=== PATIENT | female | born 1960 | race Caucasian/White ===

== ENCOUNTER 2021-06-22 06:11 | Day surgery (SDC) | payer OTHER ==
[2021-06-14 11:27] VITALS: BMI 37.3
[2021-06-22 06:41] VITALS: TEMP 98.6
[2021-06-22] MEDS ORDERED: PROPOFOL 20 ML ONE ×2 (07:23)
[2021-06-22] MEDS ORDERED: ceFAZolin SODIUM 1 GM VIAL ONE (07:23)
[2021-06-22] MEDS ORDERED: MIDAZOLAM HCL 2 MG/2 ML SINGLE DOSE VIAL ONE (07:23)
[2021-06-22] MEDS ORDERED: LIDOCAINE HCL/PF 2% SDV 5ML VIAL ONE (07:23)
[2021-06-22] MEDS ORDERED: ONDANSETRON 4 MG/2 ML VIAL ONE (07:58)
[2021-06-22] MEDS ORDERED: BUPIVACAINE HCL/PF 0.25% (2.5MG/ML) 10 ML VIAL ONE (08:04)
[2021-06-22] MEDS ORDERED: oxyCODONE HCL 5 MG TABLET PO PRN (08:50)
[2021-06-22] MEDS ORDERED: ACETAMINOPHEN 500 MG TABLET (FP) PO PRN (08:50)
[2021-06-22 09:07] VITALS: BP 100/60; PULSE 69
[2021-06-22] MEDS ORDERED: KETOROLAC TROMETHAMINE 30 MG/1 ML VIAL IM ONE (09:15)
== END 2021-06-22 09:25 | disposition home or self-care (01) ==
LOC: FASU 06:11
PROVIDERS: ATTEND Orthopaedic Surgery
PROC: 0L843ZZ Division of Left Upper Arm Tendon, Percutaneous Approach (ICD-10-PCS; principal; 2021-06-22 08:01)
DX: M77.12 Lateral epicondylitis, left elbow (principal)
CPT/HCPCS: 82962; 94760

== ENCOUNTER 2021-08-20 04:25 | Day surgery (SDC) | payer OTHER ==
[2021-08-15 17:25] VITALS: BMI 37.3
[2021-08-20] MEDS ORDERED: PROPOFOL 20 ML ONE (11:16)
[2021-08-20] MEDS ORDERED: MIDAZOLAM HCL 2 MG/2 ML SINGLE DOSE VIAL ONE (11:16)
[2021-08-20] MEDS ORDERED: KETOROLAC TROMETHAMINE 30 MG/1 ML VIAL ONE (11:26)
[2021-08-20 13:51] VITALS: BP 98/70; PULSE 70; TEMP 98.2
== END 2021-08-20 14:27 | disposition home or self-care (01) ==
LOC: JASU-SURG 04:25
PROVIDERS: ATTEND Urology
PROC: 0TF3XZZ Fragmentation in Right Kidney Pelvis, External Approach (ICD-10-PCS; principal; 2021-08-20 11:30)
DX: N20.0 Calculus of kidney (principal); I10 Essential (primary) hypertension; E11.9 Type 2 diabetes mellitus without complications
CPT/HCPCS: 82962

== ENCOUNTER 2022-05-24 07:11 | Day surgery (SDC) | payer OTHER ==
[2022-05-22 09:31] VITALS: BMI 37.5
[2022-05-24] MEDS ORDERED: BUPIVACAINE HCL/EPINEPHRINE/PF 30 ML VIAL IJ ONE (08:20)
[2022-05-24] MEDS ORDERED: MIDAZOLAM HCL 2 MG/2 ML SINGLE DOSE VIAL ONE (08:27)
[2022-05-24] MEDS ORDERED: LIDOCAINE HCL/PF 2% SDV 5ML VIAL ONE (08:27)
[2022-05-24] MEDS ORDERED: PROPOFOL 20 ML ONE ×2 (08:27→08:48)
[2022-05-24] MEDS ORDERED: DEXAMETHASONE SOD PHOSPHATE 4 MG/1 ML VIAL ONE (08:51)
[2022-05-24] MEDS ORDERED: KETOROLAC TROMETHAMINE 30 MG/1 ML VIAL ONE (08:51)
[2022-05-24] MEDS ORDERED: ONDANSETRON 4 MG/2 ML VIAL ONE (08:51)
[2022-05-24] MEDS ORDERED: ceFAZolin SODIUM 1 GM VIAL ONE ×2 (08:52)
[2022-05-24] MEDS ORDERED: BUPIVACAINE HCL/PF 0.25% (2.5MG/ML) 10 ML VIAL ONE (09:31)
[2022-05-24] MEDS ORDERED: oxyCODONE HCL 5 MG TABLET PO PRN (09:57)
[2022-05-24] MEDS ORDERED: ACETAMINOPHEN 325 MG TABLET (FP) PO PRN (09:57)
[2022-05-24] MEDS ORDERED: ONDANSETRON 4 MG/2 ML VIAL IVPUSH PRN (09:57)
[2022-05-24] MEDS ORDERED: LACTATED RINGERS SOLUTION 1,000 ML IV SCH (10:00)
[2022-05-24] MEDS ORDERED: oxyCODONE HCL 5 MG TABLET ONE (11:00)
[2022-05-24] MEDS ORDERED: ACETAMINOPHEN 325 MG TABLET (FP) ONE (11:01)
[2022-05-24 11:52] VITALS: TEMP 97.8
[2022-05-24 11:57] VITALS: BP 108/62; PULSE 75; RESP 20
== END 2022-05-24 11:45 | disposition home or self-care (01) ==
LOC: FASU 07:11
PROVIDERS: ATTEND Orthopaedic Surgery
PROC: 0SBD4ZZ Excision of Left Knee Joint, Percutaneous Endoscopic Approach (ICD-10-PCS; principal; 2022-05-24 09:06)
DX: S83.242A Other tear of medial meniscus, current injury, left knee, initial encounter (principal); M94.262 Chondromalacia, left knee; M65.9 Synovitis and tenosynovitis, unspecified; X58.XXXA Exposure to other specified factors, initial encounter; Y93.9 Activity, unspecified; Y92.9 Unspecified place or not applicable
CPT/HCPCS: 82962; 94760

== ENCOUNTER 2024-04-15 07:18 | Day surgery (SDC) | payer OTHER ==
[2024-04-14 11:18] VITALS: BMI 31.9
[2024-04-15 12:29] VITALS: RESP 20
[2024-04-15] MEDS: LIDOCAINE 1% P/F 10 MG/ML VIAL INF ONE (15:04)
[2024-04-15] MEDS: BUPIVACAINE HCL/PF 0.5% (5MG/ML) 10 ML VIAL IJ ONE (15:05)
[2024-04-15] MEDS ORDERED: ACETAMINOPHEN 500 MG TABLET (FP) PO PRN (16:53)
[2024-04-15 16:54] VITALS: BP 128/76; PULSE 75; TEMP 97.3
== END 2024-04-15 16:00 | disposition home or self-care (01) ==
LOC: JASU-SURG 07:18
PROVIDERS: ATTEND Pain Medicine Pain Medicine
PROC: 3E0T3BZ Introduction of Anesthetic Agent into Peripheral Nerves and Plexi, Percutaneous Approach (ICD-10-PCS; principal; 2024-04-15 14:00)
DX: M47.812 Spondylosis without myelopathy or radiculopathy, cervical region (principal)
CPT/HCPCS: 76000-TC-FY

== ENCOUNTER 2024-05-20 06:50 | Day surgery (SDC) | payer OTHER ==
[2024-05-17 14:32] VITALS: BMI 32.5
[2024-05-20 11:34] VITALS: PULSE 65
[2024-05-20] MEDS ORDERED: ACETAMINOPHEN 500 MG TABLET (FP) PO PRN (12:10)
[2024-05-20 12:47] VITALS: BP 134/65; RESP 16; TEMP 97.3
== END 2024-05-20 13:20 | disposition home or self-care (01) ==
LOC: JASU-SURG 06:50
PROVIDERS: ATTEND Pain Medicine Pain Medicine
PROC: 3E0T3BZ Introduction of Anesthetic Agent into Peripheral Nerves and Plexi, Percutaneous Approach (ICD-10-PCS; principal; 2024-05-20 13:00)
DX: M47.812 Spondylosis without myelopathy or radiculopathy, cervical region (principal)
CPT/HCPCS: 76000-TC-FY

== ENCOUNTER 2024-06-24 06:46 | Day surgery (SDC) | payer OTHER ==
[2024-06-18 16:13] VITALS: BMI 32.1
[2024-06-24] MEDS ORDERED: LIDOCAINE HCL/PF 1% SDV 5ML VIAL ONE (07:26)
[2024-06-24] MEDS ORDERED: BUPIVACAINE HCL/PF 0.5% (5MG/ML) 10 ML VIAL ONE (07:26)
[2024-06-24] MEDS ORDERED: LIDOCAINE HCL/PF 2% SDV 5ML VIAL ONE (07:26)
[2024-06-24] MEDS ORDERED: DEXAMETHASONE SOD PHOSPHATE 10 MG/1 ML VIAL ONE (07:26)
[2024-06-24 08:22] VITALS: RESP 18; TEMP 97.8
[2024-06-24] MEDS: LIDOCAINE HCL 1% PRESERVATIVE FREE - 30ML VIAL INF ONE (09:08)
[2024-06-24] MEDS: LIDOCAINE HCL/PF 2% SDV 5ML VIAL INF ONE (09:12)
[2024-06-24] MEDS: BUPIVACAINE HCL/PF 0.5% (5MG/ML) 10 ML VIAL IJ ONE (09:13)
[2024-06-24] MEDS ORDERED: ACETAMINOPHEN 500 MG TABLET (FP) PO PRN (09:13)
[2024-06-24] MEDS: DEXAMETHASONE SOD PHOSPHATE 10 MG/1 ML VIAL IVPUSH ONE (09:14)
[2024-06-24 11:00] VITALS: BP 137/63; PULSE 64
== END 2024-06-24 10:08 | disposition home or self-care (01) ==
LOC: JASU-SURG 06:46
PROVIDERS: ATTEND Pain Medicine Pain Medicine
PROC: 01513ZZ Destruction of Cervical Nerve, Percutaneous Approach (ICD-10-PCS; principal; 2024-06-24 09:45)
DX: M47.812 Spondylosis without myelopathy or radiculopathy, cervical region (principal)
CPT/HCPCS: 76000-TC-FY; J1100